=== PATIENT | female | born 1955 | race Caucasian/White ===

== ENCOUNTER 2016-09-27 15:14 | Emergency (ER) | payer OTHER ==
[2016-09-27 15:32] VITALS: BP 137/80; PULSE 71; TEMP 98.5; BMI 24.6
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
== END 2016-09-27 17:37 | disposition home or self-care (01) ==
LOC: FER 15:14
DX: M23.91 Unspecified internal derangement of right knee (principal); Z85.3 Personal history of malignant neoplasm of breast; E03.9 Hypothyroidism, unspecified
CPT/HCPCS: 73562-TC-RT; 99282-25

== ENCOUNTER 2016-12-21 09:05 | Observation (INO) | payer OTHER ==
--- NOTE | 2016-12-21 09:14 | PDOC ---
History of Present Illness - General Chief Complaint: Vomiting/Diarrhea Stated Complaint: N/V/D Time Seen by Provider: 12/21/16 09:14 History Source: Patient Exam Limitations: No Limitations - History of Present Illness Initial Comments: 12/21/16 09:57 This is a 61 yo F with a history of hypothyroidism who presents to the ER via EMS for Nausea, vomiting and diarrhea which began last night She had symptoms from midnight to 3am and then her symptoms stopped Pt then noted a recurrence of her diarrhea at 8am Diarrhea - non bloody, non mucoid, Emesis- non bloody, non bilious Her came into the ER and found that she "blacked out" She has had no fevers or chills No abdominal pain No recent travel No ill contacts She had the same meal that her had yesterday PMH: hypoothyroidism, mitral valve prolapse Breast CA 1998 Allergies: amoxicillin, amoxicillin trihydrate, penicillins, sulfa, and clindamycin Past surgical history: Lumpectomy Social history: denies EtOH use, denies tobacco use, denies drug use GENERAL/CONSTITUTIONAL: No: fever, chills, weakness, loss of appetite. HEAD, EYES, EARS, NOSE AND THROAT: No: change in vision, ear pain, discharge, sore throat, throat swelling. CARDIOVASCULAR: Yes:? syncope No: chest pain, lightheadedness, palpitations, syncope RESPIRATORY: No: cough, shortness of breath, wheezing GASTROINTESTINAL: Yes: nausea, vomiting, diarrhea No: abdominal pain GENITOURINARY: No: dysuria, hematuria, frequency, urgency, flank pain. MUSCULOSKELETAL: No: back pain, neck pain, joint pain, muscle swelling or pain SKIN: No: lesions, pallor, rash or easy bruising. NEUROLOGIC: No: headache, vertigo, paresthesias, weakness GENERAL: The patient is in no acute distress. HEAD: Normal with no signs of trauma. EYES: PERRLA, EOMI, sclera anicteric, conjunctiva clear. ENT: Ears normal, nares patent, oropharynx clear without exudates. Moist mucous membranes. NECK: Normal range of motion, supple without lymphadenopathy, JVD, or masses. LUNGS: Breath sounds equal, clear to auscultation bilaterally. No wheezes, and no crackles. HEART: Irregularly irregular, Tachycardia, normal S1 and S2 without murmur, rub or gallop. ABDOMEN: Soft, nontender, normoactive bowel sounds. No guarding, no rebound. EXTREMITIES: Normal range of motion, no edema. No clubbing or cyanosis. No erythema, or tenderness. NEUROLOGICAL: Cranial nerves II through XII grossly intact. Normal speech. No focal neurological deficits. MUSCULOSKELETAL: Back non-tender to palpation, no CVA tenderness SKIN: Warm, Dry, normal turgor, no rashes or lesions noted. 12/21/16 10:00 12/21/16 10:12 Past History - Past Medical History Allergies/Adverse Reactions: Allergies Allergy/AdvReac Type Severity Reaction Status Date / Time amoxicillin Allergy Swelling Verified 12/21/16 09:32 amoxicillin trihydrate Allergy Swelling Verified 12/21/16 09:32 [From Amoxil] clindamycin Allergy Swelling Verified 12/21/16 09:32 erythromycin base Allergy Rash Verified 12/21/16 09:32 Nitrate Analogues Allergy Swelling Verified 12/21/16 09:32 Penicillins Allergy Swelling Verified 12/21/16 09:32 Sulfa (Sulfonamide Allergy Swelling Verified 12/21/16 09:32 Antibiotics) Home Medications: Ambulatory Orders NK [No Known Home Medication] 09/27/16 Calcium Carbonate/Vitamin D3 [Calcium 600-Vit D3 200 Tablet] 1 each PO DAILY tablet 10/05/16 Multivitamin [Daily Multiple Vitamin] 1 each PO DAILY tablet 10/05/16 Cancer: Yes (RT BREAST CA STAGE 1 1999) - Psycho/Social/Smoking Cessation Hx Anxiety: No Suicidal Ideation: No Smoking History: Never smoked Have you smoked in the past 12 months: No Hx Alcohol Use: No Drug/Substance Use Hx: No Substance Use Type: None ED Treatment Course - LABORATORY CBC & Chemistry Diagram: 12/22/16 08:34 12/22/16 08:34 Medical Decision Making - Critical Care Time Total Critical Care Time (minutes): 35 Critical Care Statement: The care of this patient involved high complexity decision making to prevent further life threatening deterioration of the patient 's condition and/or to evalute & treat vital organ system(s) failure or risk of failure. - Medical Decision Making 12/21/16 10:14 On examination, pt irregularly irregular and tachycardiac EKG consistent with Afib with RVR Pt has no history of Afib Call placed to her [employer] office (Dr. Awa Vu - [phone]) Will obtain old records (they will fax over to us) Pt being hydrated now Awaiting labs May require anticoagulation and Admission Pt denies chest pain, unlikely PE Will send Trop and TSH 12/21/16 10:16 HR 90s- 130s 12/21/16 11:00 Pt refusing any additional blood tests Is concerned about anticoagulation given what she has seen on TV JUAN 2 Vasc 1 CAse reviewed with pt [employer] Would ANDRESSA Would start Cardizem Would hold on anticoagulation 12/21/16 13:24 12/21/16 13:25 Laboratory Tests 12/21/16 12/21/16 12/21/16 12:00 12:00 12:00 WBC 14.1 H D Hgb 15.3 Hct 44.9 Plt Count 207 Sodium 139 Potassium 4.4 Chloride 106 Carbon Dioxide 26 BUN 23 H Creatinine 0.6 Random Glucose 117 H D Creatine Kinase 72 Troponin I < 0.03 L *DC/Admit/Observation/Transfer Diagnosis at time of Disposition: Gastroenteritis, New onset atrial fibrillation - Discharge Dispostion Condition at time of disposition: Stable Admit: Yes
[2016-12-21] MEDS ORDERED: SODIUM CHLORIDE 1,000 ML IV STA (09:15)
[2016-12-21] MEDS ORDERED: ONDANSETRON 4 MG/2 ML VIAL IVPUSH ONE (09:15)
[2016-12-21] MEDS ORDERED: ONDANSETRON 4 MG/2 ML VIAL ONE ×2 (09:26→10:55)
[2016-12-21] MEDS ORDERED: dilTIAZem HCL 50 MG/10 ML - 10 ML VIAL IVPUSH ONE ×2 (11:04→13:09)
[2016-12-21] MEDS ORDERED: dilTIAZem HCL 50 MG/10 ML - 10 ML VIAL ONE (11:09)
[2016-12-21] MEDS ORDERED: dilTIAZem HCL 60 MG TABLET (FP) PO ONE (11:27)
[2016-12-21 11:38] LABS: PH,URINE 8.5 (4.5-8); URINE APPEARANCE Clear; URINE BILIRUBIN Negative (NEGATIVE); URINE GLUCOSE (UA) Negative (NEGATIVE); URINE KETONE Negative (NEGATIVE); URINE LEUK ESTERASE Negative (NEGATIVE); URINE NITRITE Negative (NEGATIVE); URINE PROTEIN Negative (NEGATIVE); URINE UROBILINOGEN 0.2 E.U/dl (0.2-1.0)
[2016-12-21 11:46] LABS: URINE COLOR YELLOW
[2016-12-21] MEDS ORDERED: dilTIAZem HCL 30 MG TABLET (FP) ONE (12:08)
[2016-12-21 12:20] LABS: URINE BLOOD Trace-intact (NEGATIVE)
[2016-12-21 12:25] LABS: MCH 31.4 pg (25.7-33.7); MCHC 34.1 g/dl (32.0-36.0); MEAN CELL VOLUME 92.3 fl (80-96); MEAN PLT VOLUME 9.6 fl (7.5-11.1); PLATELET COUNT 207 K/MM3 (134-434); RDW 12.8 % (11.6-15.6); WHITE BLOOD COUNT 14.1 K/mm3 (4.0-10.0)
[2016-12-21 12:32] LABS: ALBUMIN 3.9 g/dl (3.5-5.0); ALK PHOS 55 U/L (32-92); AMYLASE 28 U/L (25-125); ANION GAP 7 (8-16); BILIRUBIN,TOTAL 0.9 mg/dl (0.2-1.0); CALCIUM 8.9 mg/dl (8.4-10.2); CO2 26 mmol/L (22-28); COCKROFT - GAULT 112.7695; CREATININE 0.6 mg/dl (0.6-1.3); GLUCOSE,RANDOM 117 mg/dl (74-106); SGOT/AST 33 U/L (10-42); SGPT/ALT 22 U/L (10-40); TOT PROT 6.4 g/dl (6.4-8.3)
[2016-12-21 12:33] LABS: CPK(DFH) 72 IU/L (26-140)
[2016-12-21 12:39] LABS: ACTIVATED PTT 27.2 SECONDS (24.0-38.9)
[2016-12-21 12:44] LABS: INR 1.12 (0.82-1.09); PROTHROMBIN TIME (PATIENT) 12.5 SEC (10.2-13.0)
[2016-12-21 13:09] LABS: TROPONIN I (DFP) < 0.03 ng/ml (0.03-0.50)
--- NOTE | 2016-12-21 13:48 | HP ---
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 Patient reports nausea, vomiting and diarhera since yesterday morning. This morning, (12/21/16) she ambulated to the bathroom and had a syncopal episode. witnessed the syncopal episode and reports patient loss consciousness for several seconds then returned to baseline. denies any seizure like activity. As a result of syncopal episode, called ems and patient was transported to the emergency department. 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 Smoking:none Alcohol: none Drugs: none Family History: father at 87 VA mother at 77 CVA Allergies amoxicillin Allergy (Verified 12/21/16 09:32) Swelling RASH amoxicillin trihydrate [From Amoxil] Allergy (Verified 12/21/16 09:32) Swelling RASH clindamycin Allergy (Verified 12/21/16 09:32) Swelling RASH erythromycin base Allergy (Verified 12/21/16 09:32) Rash Nitrate Analogues Allergy (Verified 12/21/16 09:32) Swelling RASH Penicillins Allergy (Verified 12/21/16 09:32) Swelling RASH Sulfa (Sulfonamide Antibiotics) Allergy (Verified 12/21/16 09:32) Swelling RASH HOME MEDICATIONS: Home Medications Medication Instructions Recorded NK [No Known Home Medication] 09/27/16 Calcium Carbonate/Vitamin D3 1 each PO DAILY tablet 10/05/16 [Calcium 600-Vit D3 200 Tablet] Multivitamin [Daily Multiple 1 each PO DAILY tablet 10/05/16 Vitamin] REVIEW OF SYSTEMS CONSTITUTIONAL: Absent: fever, chills, diaphoresis, generalized weakness, malaise, loss of appetite, weight change HEENT: Absent: rhinorrhea, nasal congestion, throat pain, throat swelling, difficulty swallowing, mouth swelling, ear pain, eye pain, visual changes CARDIOVASCULAR: Absent: chest pain, syncope, palpitations, irregular heart rate, lightheadedness , peripheral edema RESPIRATORY: Absent: cough, shortness of breath, dyspnea with exertion, orthopnea, wheezing, stridor, hemoptysis GASTROINTESTINAL: Present: nausea, vomiting, diarrhea, Absent: abdominal pain, abdominal distension, constipation, melena, hematochezia GENITOURINARY: Absent: dysuria, frequency, urgency, hesitancy, hematuria, flank pain, genital pain MUSCULOSKELETAL: Absent: myalgia, arthralgia, joint swelling, back pain, neck pain SKIN: Absent: rash, itching, pallor HEMATOLOGIC/IMMUNOLOGIC: Absent: easy bleeding, easy bruising, lymphadenopathy, frequent infections ENDOCRINE: Absent: unexplained weight gain, unexplained weight loss, heat intolerance, cold intolerance NEUROLOGIC: Absent: headache, focal weakness or paresthesias, dizziness, unsteady gait, seizure, mental status changes, bladder or bowel incontinence PSYCHIATRIC: Absent: anxiety, depression, suicidal or homicidal ideation, hallucinations. PHYSICAL EXAMINATION Vital Signs - 24 hr 12/21/16 12/21/16 12/21/16 09:13 09:52 11:19 Temperature 98.5 F Pulse Rate 98 H Pulse Rate [ 102 H 106 H Apical] Respiratory 16 15 14 Rate Blood Pressure 116/59 Blood Pressure 112/68 103/61 [Left Arm] O2 Sat by Pulse 100 99 100 Oximetry (%) 12/21/16 12/21/16 13:15 13:38 Temperature Pulse Rate Pulse Rate [ 101 H 87 Apical] Respiratory 16 16 Rate Blood Pressure Blood Pressure 104/62 94/64 [Left Arm] O2 Sat by Pulse 100 99 Oximetry (%) GENERAL: Awake, alert, and fully oriented, in no acute distress. HEAD: Normal with no signs of trauma. EYES: Pupils equal, round and reactive to light, extraocular movements intact, sclera anicteric, conjunctiva clear. No lid lag. EARS, NOSE, THROAT: Ears normal, nares patent, oropharynx clear without exudates. dry mucous membranes. NECK: Normal range of motion, supple without lymphadenopathy, JVD, or masses. LUNGS: Breath sounds equal, clear to auscultation bilaterally. No wheezes, and no crackles. No accessory muscle use. HEART: irregular rate and rhythm, normal S1 and S2, 2/6 systolic murmur, rub or gallop. ABDOMEN: Soft, nontender, not distended, hyperactive bowel sounds, no guarding , no rebound, no masses. No hepatomegaly or splenomegaly. MUSCULOSKELETAL: Normal range of motion at all joints. No bony deformities or tenderness. No CVA tenderness. UPPER EXTREMITIES: 2+ pulses, warm, well-perfused. No cyanosis. No clubbing. No peripheral edema. LOWER EXTREMITIES: 2+ pulses, warm, well-perfused. No calf tenderness. No peripheral edema. NEUROLOGICAL: Cranial nerves II-XII intact. Normal speech. Normal gait. PSYCHIATRIC: Cooperative. Good eye contact. Appropriate mood and affect. SKIN: Warm, dry, normal turgor, no rashes or lesions noted, normal capillary refill. Laboratory Results - last 24 hr 12/21/16 12/21/16 12/21/16 11:20 12:00 12:00 WBC 14.1 H D RBC 4.87 Hgb 15.3 Hct 44.9 MCV 92.3 MCHC 34.1 RDW 12.8 Plt Count 207 MPV 9.6 Neutrophils % 89.0 H D Lymphocytes % 3.0 L D Monocytes % 4.0 Band Neutrophils 4.0 INR PTT (Actin FS) Sodium 139 Potassium 4.4 Chloride 106 Carbon Dioxide 26 Anion Gap 7 L BUN 23 H Creatinine 0.6 Creat Clearance w eGFR > 60 Random Glucose 117 H D Calcium 8.9 Total Bilirubin 0.9 D AST 33 ALT 22 Alkaline Phosphatase 55 Creatine Kinase Troponin I Total Protein 6.4 Albumin 3.9 Total Amylase 28 Lipase 30 Urine Color Yellow Urine Appearance Clear Urine pH 8.5 H D Ur Specific [place] 1.020 Urine Protein Negative Urine Glucose (UA) Negative Urine Ketones Negative Urine Blood Trace-intact Urine Nitrite Negative Urine Bilirubin Negative Urine Urobilinogen 0.2 e.u/dl Ur Leukocyte Esterase Negative 12/21/16 12/21/16 12:00 12:00 WBC RBC Hgb Hct MCV MCHC RDW Plt Count MPV Neutrophils % Lymphocytes % Monocytes % Band Neutrophils INR 1.12 PTT (Actin FS) 27.2 Sodium Potassium Chloride Carbon Dioxide Anion Gap BUN Creatinine Creat Clearance w eGFR Random Glucose Calcium Total Bilirubin AST ALT Alkaline Phosphatase Creatine Kinase 72 Troponin I < 0.03 L Total Protein Albumin Total Amylase Lipase Urine Color Urine Appearance Urine pH Ur Specific [place] Urine Protein Urine Glucose (UA) Urine Ketones Urine Blood Urine Nitrite Urine Bilirubin Urine Urobilinogen Ur Leukocyte Esterase ASSESSMENT/PLAN: 1) card new onset Afib w/rvr - cardizem 20mg IV and 60mg PO given in ED, pt remains in rate controlled afib on cardiac monitoring - troponin x 1 WNL-->pending troponin x 2 - pending echo - [id number] 1 (low risk) no AC - appreciate cardiology input, Dr Cesar syncopal episode - reports prodromal symptoms likely secondary to volume depletion 2) endo kathleen thyroiditis - pt does not take any PO medication folllowed by endocrine at [facility], biopsy of thyroid nodule (2015) was negative as per patient - pending TSH 3) GI vomiting/diarherra - full liquid diet will advance as tolerated f/e/n - full liquid -->advance as tolerated - IVF ppx - scd - pepcid - oob dispo: requires telemetry obsv Visit type - Emergency Visit Emergency Visit: Yes ED Registration Date: 12/21/16 Care time: The patient presented to the Emergency Department on the above date and was hospitalized for further evaluation of their emergent condition. - New Patient This patient is new to me today: Yes Date on this admission: 12/21/16 - Critical Care Critical Care patient: Yes Total Critical Care Time (in minutes): 45 Critical Care Statement: The care of this patient involved high complexity decision making to prevent further life threatening deterioration of the patient 's condition and/or to evalute & treat vital organ system(s) failure or risk of failure.
--- NOTE | 2016-12-21 14:27 | CON.CARD ---
Consult Consult Specialty:: Cardiology Referred by:: Hospitalist Medicine Reason for Consultation:: s/p syncope - History of Present Illness Chief Complaint: Syncope, afib History of Present Illness: Patient is a 61 y/o female with a past medical history of kathleen's thryroiditis (no medication, followed by endocrine in [facility]), breast CA, s/p lumpectomy, radiation, chemo in remission since 1998. Patient presented with nausea, vomiting and diarrhea, syncopal episode on toilet with prodromal sxs of hand numbness. She denies chest pain, palpitations, near syncope, orthopnea, PND or LE edema, given Cardizem for rate-control. ER course was notable for: (1) ekg upon arrival afib w/rvr rate of 130's (2) cardizem 20mg IV and cardizem 60mg IV given in ED, repeat EKG, afib with rate of 82 (3) troponin x 1 wnl - History Source History Provided By: Patient Limitations to Obtaining History: No Limitations - Past Medical History Endocrine: Yes: Hypothyroidism - Alcohol/Substance Use Hx Alcohol Use: No - Smoking History Smoking history: Never smoked Have you smoked in the past 12 months: No Home Medications - Allergies Allergies/Adverse Reactions: Allergies Allergy/AdvReac Type Severity Reaction Status Date / Time amoxicillin Allergy Swelling Verified 12/21/16 09:32 amoxicillin trihydrate Allergy Swelling Verified 12/21/16 09:32 [From Amoxil] clindamycin Allergy Swelling Verified 12/21/16 09:32 erythromycin base Allergy Rash Verified 12/21/16 09:32 Nitrate Analogues Allergy Swelling Verified 12/21/16 09:32 Penicillins Allergy Swelling Verified 12/21/16 09:32 Sulfa (Sulfonamide Allergy Swelling Verified 12/21/16 09:32 Antibiotics) - Home Medications Home Medications: Ambulatory Orders NK [No Known Home Medication] 09/27/16 Calcium Carbonate/Vitamin D3 [Calcium 600-Vit D3 200 Tablet] 1 each PO DAILY tablet 10/05/16 Multivitamin [Daily Multiple Vitamin] 1 each PO DAILY tablet 10/05/16 Review of Systems - Review of Systems Neurological: reports: Syncope Vital Signs: Vital Signs Temperature 98.5 F 12/21/16 09:13 Pulse Rate 87 12/21/16 13:38 Respiratory Rate 16 12/21/16 13:38 Blood Pressure 94/64 12/21/16 13:38 O2 Sat by Pulse Oximetry (%) 99 12/21/16 13:38 Constitutional: Yes: No Distress, Calm Neck: Yes: Supple Respiratory: Yes: Regular, CTA Bilaterally Gastrointestinal: Yes: Normal Bowel Sounds, Soft Cardiovascular: Yes: Tachycardia, Pulse Irregular JVD: No Carotid Bruit: No Heart Sounds: Yes: S1, S2 Edema: No - Other Data Labs, Other Data: INR, PTT INR 1.12 (0.82-1.09) 12/21/16 12:00 Afib @ 123->90 Problem List - Problems (1) New onset atrial fibrillation Code(s): I48.91 - UNSPECIFIED ATRIAL FIBRILLATION (2) Syncope Code(s): R55 - SYNCOPE AND COLLAPSE Qualifiers: Syncope type: vasovagal syncope Qualified Code(s): R55 - Syncope and collapse (3) Hypothyroidism Code(s): E03.9 - HYPOTHYROIDISM, UNSPECIFIED Qualifiers: Hypothyroidism type: postoperative Qualified Code(s): E89.0 - Postprocedural hypothyroidism Assessment/Plan 1. Syncope episode in context of emesis, diarrhea suspect orthostatic, vasovagal etiology 2. Newly diagnosed rapid atrial fibrillation [id number] 3. Hypothyroidism 4. Breast ca s/p lumpectomy, chemo, XRT P:1. Check TSH, serial cardiac enzymes, orthostatic VS, IVF, antiemetics, advance diet as tolerated 2. Echo to assess LV and valve fxn 3. Start Toprol XL 25 qd, not a/c candidate due to low risk score 4. Case d/w outside change coordinator Dr. Awa Vu [phone] [facility] , will f/u with her upon d/c 5. Thank you for consultative opportunity
[2016-12-21] MEDS ORDERED: DEXTROSE 5%-NORMAL SALINE 1,000 ML IV SCH (14:30)
[2016-12-21] MEDS ORDERED: ACETAMINOPHEN 325 MG TABLET (FP) PO PRN (15:11)
[2016-12-21 16:26] VITALS: BMI 25.9
[2016-12-21 19:24] LABS: CPK(DFH) 79 IU/L (26-140)
[2016-12-21 19:39] LABS: TROPONIN I (DFP) < 0.03 ng/ml (0.03-0.50)
[2016-12-22] MEDS ORDERED: METOPROLOL SUCCINATE 25 MG TAB.SR.24H (FP) PO ONE (01:11)
[2016-12-22] MEDS ORDERED: METOPROLOL TARTRATE 5 MG/5 ML VIAL IVPUSH ONE (01:13)
[2016-12-22 06:08] VITALS: TEMP 98.5
[2016-12-22 08:41] LABS: BASOPHIL 1.9 % (0-2.0); EOSINOPHIL 0.1 % (0-4.5); MCH 31.3 pg (25.7-33.7); MCHC 33.8 g/dl (32.0-36.0); MEAN CELL VOLUME 92.6 fl (80-96); MEAN PLT VOLUME 8.8 fl (7.5-11.1); NEUTROPHILS 78.5 % (42.8-82.8); PLATELET COUNT 209 K/MM3 (134-434); RDW 12.7 % (11.6-15.6); WHITE BLOOD COUNT 10.1 K/mm3 (4.0-10.0)
[2016-12-22 08:59] LABS: CALCIUM 9.3 mg/dl (8.4-10.2); COCKROFT - GAULT 95.2; CREATININE 0.7 mg/dl (0.6-1.3)
[2016-12-22 09:10] LABS: CPK(DFH) 81 IU/L (26-140)
[2016-12-22 09:35] LABS: TROPONIN I (DFP) < 0.03 ng/ml (0.03-0.50)
[2016-12-22] MEDS ORDERED: MULTIVITAMINS (DAILY MVI) TABLET (FP) PO SCH (10:00)
[2016-12-22] MEDS ORDERED: METOPROLOL SUCCINATE 25 MG TAB.SR.24H (FP) PO SCH (10:00)
[2016-12-22 10:47] VITALS: BP 129/67; PULSE 90
--- NOTE | 2016-12-22 11:40 | DS ---
Physical Exam: SUBJECTIVE: Patient seen and examined. No lightheadedness, dyspnea, chest pain, or any other complaints. OBJECTIVE: Tele: Afib with ventricular rate 50s-70s. TNI neg x 3. Echo with normal LV function. LA mildly dilated (4.0cm). Vital Signs Period Temp Pulse Resp BP Sys/Andrade Pulse Ox Last 24 Hr 97.8 F-99.7 F 57-132 16-20 92-129/53-82 99-100 PHYSICAL EXAM GENERAL: The patient is awake, alert, and fully oriented, in no acute distress. HEAD: Normal with no signs of trauma. EYES: PERRL, extraocular movements intact, sclera anicteric, conjunctiva clear. ENT: Ears normal, nares patent, oropharynx clear without exudates, moist mucous membranes. NECK: Trachea midline, full range of motion, supple. LUNGS: Breath sounds equal, clear to auscultation bilaterally, no wheezes, no crackles, no accessory muscle use. HEART: Irregular rhythm, S1, S2 without murmur, rub or gallop. ABDOMEN: Soft, nontender, nondistended, normoactive bowel sounds, no guarding, no rebound, no hepatosplenomegaly, no masses. EXTREMITIES: 2+ pulses, warm, well-perfused, no edema. NEUROLOGICAL: Cranial nerves II through XII grossly intact. Normal speech, gait not observed. PSYCH: Normal mood, normal affect. SKIN: Warm, dry, normal turgor, no rashes or lesions noted. LABS Laboratory Results - last 24 hr 12/21/16 12/22/16 12/22/16 16:55 08:34 08:34 WBC 10.1 H RBC 4.67 Hgb 14.6 Hct 43.2 MCV 92.6 MCHC 33.8 RDW 12.7 Plt Count 209 MPV 8.8 Neutrophils % 78.5 Lymphocytes % 16.0 D Monocytes % 3.5 L Eosinophils % 0.1 D Basophils % 1.9 D Sodium 138 Potassium 4.5 Chloride 106 Carbon Dioxide 29 H Anion Gap 3 L BUN 11 D Creatinine 0.7 Random Glucose 118 H Calcium 9.3 Creatine Kinase 79 Troponin I < 0.03 L 12/22/16 08:34 WBC RBC Hgb Hct MCV MCHC RDW Plt Count MPV Neutrophils % Lymphocytes % Monocytes % Eosinophils % Basophils % Sodium Potassium Chloride Carbon Dioxide Anion Gap BUN Creatinine Random Glucose Calcium Creatine Kinase 81 Troponin I < 0.03 L HOSPITAL COURSE: This is a 61 year old female with a history of Yael's thryroiditis, breast ca s/p lumpectomy/RTX/chemo in remission since 1998 who presented on 12/21 following a syncopal episode in the context of n/v/d. EKG on arrival showed new onset Afib rate of 123. Rate was controlled with Cardizem 20mg IVP and 60mg po. Hospital course notable for: (1) CXR: No acute process (2) Troponin <0.03 x 3 (3) TSH 0.63 (4) Echocardiogram: Normal LV function, LA mildly dilated (4.0cm), trace to mild mitral regurgitation The patient is not a candidate for AC as [id number]. Possibility of cardioversion discussed with patient as AF seems to have been provoked with clear onset, but she is not amenable to this. Prefers to be discharged to follow up with her private ladies suit operator, with whom she has an appointment on Saturday. Return precautions reviewed. Date of Admission:12/21/16 Date of Discharge: 12/22/16 Minutes to complete discharge: 35 Discharge Summary Reason For Visit: NEW ONSET AFIB Current Active Problems Gastroenteritis (Acute) New onset atrial fibrillation (Acute) Syncope (Acute) Hypothyroidism (Chronic) Condition: Stable - Instructions Diet, Activity, Other Instructions: You were seen for syncope (fainting) caused by new onset atrial fibrillation, an abnormal heart rhythm. Start taking Toprol XL once daily as prescribed to control your heart rate. Follow up with your ladies suit operator as scheduled on Saturday. Return here for fainting/near fainting, dizziness, chest pain, shortness of breath, or any other concerning symptoms. Records from this stay have been faxed to Dr. Vu's office. Referrals: Justin Lewis MD [Primary Care Provider] - - Home Medications Comprehensive Discharge Medication List: Ambulatory Orders Calcium Carbonate/Vitamin D3 [Calcium 600-Vit D3 200 Tablet] 1 each PO DAILY tablet 10/05/16 Multivitamin [Daily Multiple Vitamin] 1 each PO DAILY tablet 10/05/16 Metoprolol Succinate [Toprol XL -] 25 mg PO DAILY #30 tab.sr.24h 12/22/16 This patient is new to me today: Yes Date on this admission: 12/22/16 Emergency Visit: Yes ED Registration Date: 12/21/16 Care time: The patient presented to the Emergency Department on the above date and was hospitalized for further evaluation of their emergent condition. Critical Care patient: No - Discharge Referral Referred to [facility] Yes Physician Referral: Justin Lewis MD (Int Med)
--- NOTE | 2016-12-24 09:13 | EKG ---
Test Reason : Blood Pressure : / mmHG Vent. Rate : 123 BPM Atrial Rate : 122 BPM P-R Int : 000 ms QRS Dur : 094 ms QT Int : 354 ms P-R-T Axes : 000 -31 -17 degrees QTc Int : 506 ms ATRIAL FIBRILLATION WITH RAPID VENTRICULAR RESPONSE LEFT AXIS DEVIATION INCOMPLETE RIGHT BUNDLE BRANCH BLOCK ABNORMAL ECG WHEN COMPARED WITH ECG OF 21-DEC-2016 09:55, HR has increased Confirmed by YO PRASAD, CACHORRO ([id number] on 12/24/2016 9:13:27 AM Referred By: BRODY Confirmed By:CACHORRO RAM MD
--- NOTE | 2016-12-24 09:14 | EKG ---
Test Reason : Blood Pressure : / mmHG Vent. Rate : 090 BPM Atrial Rate : 340 BPM P-R Int : 000 ms QRS Dur : 094 ms QT Int : 366 ms P-R-T Axes : 000 -38 -12 degrees QTc Int : 447 ms ATRIAL FIBRILLATION LEFT AXIS DEVIATION INCOMPLETE RIGHT BUNDLE BRANCH BLOCK NONSPECIFIC T WAVE ABNORMALITY ABNORMAL ECG NO PREVIOUS ECGS AVAILABLE Confirmed by CACHORRO RAM MD ([id number] on 12/24/2016 9:13:40 AM Referred By: BRODY Confirmed By:CACHORRO RAM MD
--- NOTE | 2016-12-25 13:46 | EKG ---
Test Reason : Blood Pressure : / mmHG Vent. Rate : 091 BPM Atrial Rate : 122 BPM P-R Int : 000 ms QRS Dur : 094 ms QT Int : 350 ms P-R-T Axes : 000 -28 010 degrees QTc Int : 430 ms ATRIAL FIBRILLATION RSR' OR QR PATTERN IN V1 SUGGESTS RIGHT VENTRICULAR CONDUCTION DELAY ABNORMAL ECG WHEN COMPARED WITH ECG OF 21-DEC-2016 09:56, NO SIGNIFICANT CHANGE WAS FOUND Confirmed by ELIU PRASAD, ZAMZAM ([id number] on 12/25/2016 1:46:17 PM Referred By: DR GIMENEZ Confirmed By:ZAMZAM NOWAK MD
== END 2016-12-22 11:55 | disposition home or self-care (01) ==
LOC: FER 09:05 → FM/S 13:44
PROVIDERS: ADMIT Internal Medicine; ATTEND Registered Nurse Emergency
PROC: 3E033GC Introduction of Other Therapeutic Substance into Peripheral Vein, Percutaneous Approach (ICD-10-PCS; principal; 2016-12-21)
PROC: 3E0337Z Introduction of Electrolytic and Water Balance Substance into Peripheral Vein, Percutaneous Approach (ICD-10-PCS; 2016-12-21)
DX: I48.91 Unspecified atrial fibrillation (principal); R55 Syncope and collapse; E06.3 Autoimmune thyroiditis; E03.9 Hypothyroidism, unspecified; I34.1 Nonrheumatic mitral (valve) prolapse; K52.9 Noninfective gastroenteritis and colitis, unspecified; Z88.0 Allergy status to penicillin; Z85.3 Personal history of malignant neoplasm of breast; Z92.21 Personal history of antineoplastic chemotherapy
CPT/HCPCS: 36415; 71010-TC; 80048; 80053; 81003; 82150; 82550; 83690; 83880; 84443; 84484; 85025; 85610; 85730; 93005; 93010; 93306-TC; 99285-25; G0378